=== PATIENT | male | born 1985 | race Caucasian/White ===

== ENCOUNTER 2025-08-20 11:20 | Emergency (ER) | payer MEDICAID, SELFPAY ==
[2025-08-20 11:26] VITALS: BP 155/98; PULSE 78; TEMP 36.7; O2SAT 99
--- NOTE | 2025-08-20 11:30 | ED_ITS ---
HPI - General Adult General: Chief complaint: Skin/Abscess/Foreign Body Stated complaint: ingrown hair in the nose Time Seen by Provider: 08/20/25 11:26 Source: patient Mode of arrival: ambulatory Limitations: no limitations History of Present Illness: 40-year-old male who states that he had an ingrown hair that he pulled in his nose and since has been having some swelling and redness to his nose with some slight pain. Patient denies any fevers he denies any abscess or drainage denies any worse or improving factors. Related Data Previous Rx's ?Medication ?Instructions ?Recorded benzonatate 100 mg capsule 100 mg PO TID PRN cough #15 caps 09/20/22 cephalexin 500 mg capsule 500 mg PO TID 7 days #21 cap s 08/20/25 sulfamethoxazole 800 1 tab PO BID 10 days #20 tab s 08/20/25 mg-trimethoprim 160 mg tablet (Bactrim DS) Allergies Allergy/AdvReac Type Severity Reaction Status Date / Time No Known Allergies Allergy Verified 08/20/25 11:32 Physical Exam Const: COMMON NORMALS: no acute distress, patient oriented x3 and healthy appearing HENMT: COMMON NORMALS: normocephalic and atraumatic HEAD & SCALP: normocephalic and atraumatic OTHER: Erythema noted to nose no abscess noted nares are clear with no intranasal abscess noted Neck/C-Spine: COMMON NORMALS: full ROM and supple Chest: COMMONS NORMALS: normal inspection of the chest Resp: COMMON NORMALS: normal respiratory effort Cardio: COMMON NORMALS: regular rate RATE: regular rate Extremity: COMMON NORMALS: normal to inspection and full ROM Neuro: COMMON NORMALS: patient oriented x3, moves all extremities and no focal motor deficits Psych: COMMON NORMALS: mental status grossly normal, Normal thought process present and cooperative THOUGHT PROCESS: Normal thought process present Skin: COMMON NORMALS: no rashes or lesions noted and no wounds GENERAL SKIN EXAM: no rashes or lesions noted Course Vital Signs: Vital signs: Vital Signs Temperature 98.1 F 08/20/25 11:26 Pulse Rate 78 08/20/25 11:26 Blood Pressure 155/98 08/20/25 11:26 Pulse Oximetry 99 08/20/25 11:26 Oxygen Delivery Me thod Room Air 08/20/25 11:26 [facility] - General Adult Medical Decision Making Patient presents here with erythema to his nose likely a cellulitis. He has no signs of abscess or intranasal abscess at this time. He is to do warm compresses we will place him on Keflex and Bactrim he stable for discharge he is to follow-up with PCP and return if worsening he understands agrees to plan. Medical Records I reviewed the patient's medical records. No radiology studies performed this visit Discharge Plan Discharge Patient Disposition: Home Clinical Impression: Cellulitis Qualifiers: Site of cellulitis: face Qualified Code(s): L03.211 - Cellulitis of face Condition: Stable Prescriptions: New sulfamethoxazole-trimethoprim [Bactrim DS] 800-160 mg tablet 1 tab PO BID 10 Days Qty: 20 0RF cephalexin 500 mg capsule 500 mg PO TID 7 Days Qty: 21 0RF No Action benzonatate 100 mg capsule 100 mg PO TID PRN (Reason: cough) Qty: 15 0RF Discharge Orders: Discharge ED (Routine); Ordered 08/20/25 Ordered By: Taina Sultana Discharge Diet: Advance as tolerated Discharge Activity: Resume usual activity Patient Instructions: Cellulitis (ED) Print Language: Divehi Coding Level of Care Code ED [employer] Assistant for Kira Foley
[2025-08-20 11:46] VITALS: BP 143/98; PULSE 84; O2SAT 97
== END 2025-08-20 11:48 | disposition home or self-care (01) ==
PROVIDERS: Emergency Provider Emergency Medicine
DX: L03.211 Cellulitis of face (principal)
CPT/HCPCS: 99283